=== PATIENT | male | born 1995 | race Caucasian/White ===

== ENCOUNTER 2017-07-02 23:05 | Emergency (ER) | payer BC ==
[~2017-07-02] VITALS: Ht 185.4 cm; Wt 83.0 kg
[2017-07-02 23:08] VITALS: Ht 185.4 cm; Wt 83.0 kg
--- NOTE | 2017-07-03 00:50 | ERD ---
ER Documentation Chief Complaint Chief Complaint LEFT KNEE PAIN, DECREASED ROM AND REPORTED CREPTITUS WHEN BENDING HPI This is a 22-year-old male who presents the emergency department today complaining of left knee pain after sustaining an injury while playing basketball 2 days ago. Patient states that he has pain with bending his knee. States he is able to ambulate. States he has not taken any medication for the pain. States he has applied ice. Denies any previous trauma, fevers or chills. ROS All systems reviewed and are negative except as per history of present illness. Medications Home Meds Active Scripts Naproxen* (Naprosyn*) 500 Mg Tablet, 500 MG PO BID Y for PAIN AND/OR INFLAMMATION, #30 TAB Prov:MAIN SWENSON PA-C 07/03/17 Allergies Allergies: Coded Allergies: No Known Allergy (Unverified , 07/02/17) PMhx/Soc Medical and Surgical Hx: pt denies Medical Hx, pt denies Surgical Hx Hx Alcohol Use: Yes Hx Substance Use: No Hx Tobacco Use: No Smoking Status: Never smoker Physical Exam Vitals Vital Signs Date Time Temp Pulse Resp B/P Pulse Ox O2 Delivery O2 Flow Rate FiO2 07/02/17 23:08 98.6 79 18 144/94 99 Physical Exam Const: NAD Head: Atraumatic Eyes: Normal Conjunctiva ENT: Normal External Ears, Nose and Mouth. Neck: Full range of motion..~ No meningismus. Resp: Clear to auscultation bilaterally Cardio: Regular rate and rhythm, no murmurs Abd: Soft, non tender, non distended. Normal bowel sounds Skin: No petechiae or rashes MSK: left knee with no obvious deformity. No effusion. No ecchymosis. Decreased range of motion secondary to pain. Tenderness to palpation lateral joint line. Pulses 2+. Distal neurovascularly Neur: Awake and alert Psych: Normal Mood and Affect Procedures/MDM This is 22-year-old male who presents the emergency department today complaining of left knee pain after sustaining an injury while playing basketball. I had planned to take x-rays for the patient however I was notified by nursing staff that patient had already had an x-ray approximately 1 week ago for similar complaints at an urgent care and was told to come to the ER. He did not bring paperwork with him and this was not mentioned to me at the patient's initial HPI. I explained to the patient that there is no other testing that is indicated at this time and he does need to follow-up with his primary care doctor for referral to revenue tax specialist. At this time I have low suspicion for acute fracture dislocation. I explained to the patient that he may damage to his ligaments or his cartilage and he would need further evaluation by an revenue tax specialist. Patient understood. He was given a list of community resources. Patient is afebrile and otherwise well-appearing. I will suspicion for septic joint or gout. Patient declined pain medication here in the emergency department. He declined crutches and a knee immobilizer. I will give him a prescription for Naprosyn for home. At this time the patient is stable for discharge and outpatient management. Patient should follow up with their PCP in the next 1-2 days. They may return to the emergency department sooner for any persistent or worsening of symptoms. Patient understood and agreed with the plan. Departure Diagnosis: Primary Impression: Knee injury Encounter type: initial encounter Laterality: left Qualified Code: S89.92XA - Injury of left knee, initial encounter Condition: Fair MAIN SWENSON PA-C Jul 03, 2017 00:50
[2017-07-03] MEDS ORDERED: NAPR-260 PO (00:51)
== END 2017-07-03 00:59 | disposition home or self-care (01) ==
LOC: FTE 23:05
DX: S89.92XA Unspecified injury of left lower leg, initial encounter (principal); X50.9XXA Other and unspecified overexertion or strenuous movements or postures, initial encounter; Y92.9 Unspecified place or not applicable
CPT/HCPCS: 99283